=== PATIENT | male | born 1965 | race Caucasian/White ===

== ENCOUNTER 2021-09-03 13:49 | Emergency (ER) | payer BC, SELFPAY ==
--- NOTE | ~2021-09-03 | XR_ITS ---
EXAMINATION: XR chest 2V EXAM DATE: 09/03/2021 15:16 INDICATION: Cough and fever. TECHNIQUE: Frontal and lateral projections of the chest obtained and reviewed. There is no prior melody dy for comparison. FINDINGS: There is right basilar granuloma. There is moderate hyperinflation. There is no pneumothor ax suspected. There are no pleural effusions. Marrow cardiac silhouette from hyperinflated lungs. Th ere are no osseous abnormalities identified. IMPRESSION: 1. Hyperinflation. 2. No acute cardiopulmonary findings. Reviewed, dictated and finalized at location G. ORT ERECTOR
[2021-09-03 14:04] VITALS: BP 98/65; PULSE 107; RESP 14; TEMP 38.8; O2SAT 98
--- NOTE | 2021-09-03 15:59 | ED.GENADULT ---
HPI - General Adult General Chief complaint: Upper Respiratory Infection Stated complaint: fever congestion cough Source: patient Mode of arrival: ambulatory Limitations: no limitations History of Present Illness HPI narrative: Patient presents for evaluation of sick symptoms for the past five days. Symptoms include fever, chills, nonproductive cough, SOB. sternal chest pain, diarrhea, weakness and body aches. States a friend of his tested positive for Covid about 3 weeks ago. Patient is unsure whether he personally has had Covid in the past. He has not been vaccinated for COVID. He has an underlying history of emphysema and continues to smoke a half a pack per day. He is currently homeless, losing his home in June. He has not tried any therapies to assist with his symptoms. No additional complaints or concerns. Related Data Home Medications Medication Instructions Recorded Confirmed No Home Medications 09/03/21 09/03/21 Allergies Allergy/AdvReac Type Severity Reaction Status Date / Time No Known Allergies Allergy Verified 09/03/21 14:34 Review of Systems Review of Systems: CONSTITUTIONAL: Reports fever, chills, night sweats. EYES: Denies visual changes, redness, or discharge. ENT: Reports sinus congestion, drainage, sore throat. CARDIOVASCULAR: Reports chest pain. Denies palpitations, or edema. RESPIRATORY: Reports cough and shortness of breath GASTROINTESTINAL: Reports diarrhea. Denies abdominal pain, nausea, vomiting GENITOURINARY: Denies dysuria or hematuria. SKIN: Denies rash or itching. MUSCULOSKELETAL: Reports generalized body aches NEUROLOGIC: Reports generalized fatigue/weakness. Denies lateralizing deficits, headache, numbness, dizziness PSYCHIATRIC: Denies anxiety or depression. [facility] Past Medical History Medical History (Updated 09/03/21 @ 16:30 by DOMINGO Stone, ) Emphysema lung Surgical History Surgical History No pertinent past surgical history Family History Family History (Updated 09/03/21 @ 16:05 by DOMINGO Stone, GISSELLE) Mother Family history unknown Social History Social History Smoking packs per day: 0.5 Smoking cigarettes per day: 10.0 Smoking status: Current every day smoker Living arrangements: homeless Gender identity (if verbalized by the patient): Male Spiritual care concerns: No Exam Narrative: GENERAL: Appears acutely ill but in no distress HEAD: Normocephalic, atraumatic. EYES: PERRLA and EOMI. ENT: Nares clear, no rhinorrhea or epistaxis. Mucous membranes moist. Oropharynx without tonsillar hypertrophy exudate or other lesions. Bilateral TMs pearly ellis nonbulging NECK: Supple. No adenopathy or masses. No carotid bruits or JVD CHEST: Cough present on exam. Bilateral rales noted HEART: Regular rate and rhythm. No murmur heard. Normal peripheral pulses. ABDOMEN: Soft, nontender, nondistended, normal active bowel sounds. EXTREMITIES: Normal range of motion. No edema. SKIN: Warm, dry, no rash. NEURO: No focal deficits. Alert and oriented x3. PSYCH: Rude, insulting, disrespectful Course Course Emergency Course: This is a 55-year-old male that presented with complaints of respiratory symptoms after recent exposure to Covid. Covid negative. Influenza negative. Chest x-ray with hyperinflation. Patient tachycardic, febrile, hypotensive. He needs further work-up. I recommended he be transferred to the emergency department, at which time he became very disrespectful, insulting, or me that I am not a real doctor . I provided with rationale for which I wanted to transfer him. Nurse was able to provide additional education. He then agreed to be transferred. I contacted [facility] in [facility] and spoke with nurse practitioner, Latia Cruz. She indicated that Dr. Pressley would accept pt to tra
--- NOTE | 2021-09-03 16:00 | ECG_ITS ---
Measurements Intervals [place] Rate: 93 P: 80 OH: 183 QRS: 82 QRSD: 92 T: 75 QT: 347 QTc: 432 Interpretive Statements SINUS RHYTHM EARLY PRECORDIAL R/S TRANSITION BORDERLINE ECG Electronically Signed On 09-04-2021 7:36:15 ASSESSMENT ANALYST by Jose Schneider D.O.
[2021-09-03 16:21] VITALS: TEMP 38.6
[2021-09-03] MEDS: IBUPROFEN 400 MG TABLET 800 MG PO (16:21)
[2021-09-03 16:25] VITALS: BP 105/70; PULSE 98; RESP 18; O2SAT 98
== END 2021-09-03 16:25 | disposition short-term general hospital (02) ==
PROVIDERS: Emergency Provider Nurse Practitioner
DX: R06.02 Shortness of breath (principal); R00.0 Tachycardia, unspecified; R07.9 Chest pain, unspecified; I95.0 Idiopathic hypotension; Z20.822 Contact with and (suspected) exposure to COVID-19; F17.210 Nicotine dependence, cigarettes, uncomplicated; J43.9 Emphysema, unspecified
CPT/HCPCS: 71046; 87426; 87804; 93005; 99213; A9270; C9803; G0463